=== PATIENT | female | born 1965 | race Caucasian/White ===

== ENCOUNTER 2016-08-31 19:26 | Emergency (ER) | payer BC, MEDICARE ==
[~2016-08-31] VITALS: Ht 160 cm; Wt 91.6 kg
[~2016-08-31 19:26] MED LIST: AMLODIPINE5 MG PO; AMOXICILLIN500 MG PO; CIPROFLOXACN500 MG PO; DEPAKENE250 MG PO; FIORICET PO; FISH OIL1000 MG PO; FLEXERIL PO; LAMICTAL200 MG PO; MACROBID100 MG PO; MULTI VIT PO; NAPROSYN500 MG PO; PERCOCET 5/321 COMBO PO; PHENERGAN25 M1 RE; PHENERGAN25 MG RE; PHENERGAN25 MG/TAB PO; PYRIDIUM200 MG PO; RESTORIL15 M1 PO; TAMAZAPAM PO; ULTRAM50 M1 PO; XANAX1 MG PO; ZOFRAN ODT4 MG PO; ZOFRAN4 MG/TAB PO
[2016-08-31] MEDS ORDERED: LEXAPRO20 MG PO (19:42)
[2016-08-31 20:12] LABS: URINE BILIRUBIN - DIPSTICK NEGATIVE (NEGATIVE); URINE BLOOD DIPSTICK LARGE (NEGATIVE); URINE CLARITY CLEAR; URINE COLOR YELLOW; URINE GLUCOSE - DIPSTICK NEGATIVE (NEGATIVE); URINE KETONE NEGATIVE (NEGATIVE); URINE LEUK ESTERASE TRACE (NEGATIVE); URINE NITRITE - DIPSTICK NEGATIVE (Negative); URINE PH 5.5 (4.5-8.0); URINE PROTEIN - DIPSTICK NEGATIVE (NEG-TRACE); URINE SPECIFIC GRAVITY 1.025; URINE UROBILINOGEN - DIPSTICK 0.2 E.U./dL (0.2)
[2016-08-31 21:07] LABS: HEMATOCRIT 40.8 % (37.0-47.0); HEMOGLOBIN 13.9 g/dl (12.0-16.0); IMMATURE GRANULOCYTES 0.8 % (0.0-1.0); MEAN CELL VOLUME 83.4 fL CALC (80.0-100.0); MEAN CORPUSCULAR HGB 28.4 pG CALC (26.0-32.0); MEAN CORPUSCULAR HGB CONC 34.1 g/L CALC (32.0-36.0); NEUT# 2.48 thou/uL (2.00-7.15); RED BLOOD COUNT 4.89 mill/uL (4.20-5.60); RED CELL DISTRI WIDTH 12.6 % (11.5-15.5)
[2016-08-31 21:13] LABS: ALBUMIN 4.5 g/dL (3.2-5.0); ALKALINE PHOSPHATASE 103 u/l (38-126); AMYLASE 65 u/l (30-110); ANION GAP 18 (6-22 (CALC)); BILIRUBIN, TOTAL 0.5 mg/dL (0.0-1.4); BUN 17 mg/dL (7-17); BUN/CREATININE RATIO 27 (12-20 (CALC)); CALCIUM 10.4 mg/dL (8.4-10.2); CARBON DIOXIDE 23 mmol/l (22-30); CHLORIDE 108 mmol/l (95-108); CREATININE 0.6 mg/dL (0.5-1.0); GFR > 60 ML/MIN (>=60 (CALC)); GFR FOR AFR.AMER. > 60 ML/MIN (>=60 (CALC)); GLUCOSE 89 mg/dL (65-105); LIPASE 70 u/l (23-300); POTASSIUM 4.6 mmol/l (3.5-5.1); SGOT/AST 23 u/l (14-36); SGPT/ALT 29 u/l (9-52); SODIUM 143 mmol/l (137-146); TOTAL PROTEIN 7.5 g/dL (6.3-8.2)
[2016-08-31 21:14] LABS: URINE CALCIUM OXALATE CRYSTALS MODERATE lpf; URINE RBC 50-100 RBC/hpf (0-5); URINE SQUAMOUS EPITHELIAL CELL FEW EPI/hpf (0-FEW)
[2016-08-31 21:25] LABS: MYOGLOBIN 14 ng/mL (0 - 62)
[2016-08-31] MEDS ORDERED: CIPROFLOXACN500 MG PO (21:37)
[2016-08-31] MEDS ORDERED: AMLODIPINE5 MG PO (21:37)
[2016-08-31] MEDS ORDERED: PYRIDIUM200 MG PO (21:52)
[2016-08-31 22:15] VITALS: BP 149/71
== END 2016-08-31 22:15 | disposition home or self-care (01) | DRG 690 ==
LOC: ED 19:26
PROVIDERS: Emergency Medicine
DX: N39.0 Urinary tract infection, site not specified (principal); R10.2 Pelvic and perineal pain; R11.2 Nausea with vomiting, unspecified; R30.0 Dysuria

== ENCOUNTER 2016-09-30 18:17 | Emergency (ER) | payer BC, MEDICARE ==
[~2016-09-30] VITALS: Ht 160 cm; Wt 79.5 kg
[~2016-09-30 18:17] MED LIST changes: +LEXAPRO20 MG PO
[2016-09-30 19:37] LABS: HEMOGLOBIN 13.4 g/dl (12.0-16.0); IMMATURE GRANULOCYTES 0.8 % (0.0-1.0); MEAN CELL VOLUME 82.8 fL CALC (80.0-100.0); MEAN CORPUSCULAR HGB 28.5 pG CALC (26.0-32.0); MEAN CORPUSCULAR HGB CONC 34.4 g/L CALC (32.0-36.0); NEUT# 3.21 thou/uL (2.00-7.15); RED BLOOD COUNT 4.71 mill/uL (4.20-5.60); RED CELL DISTRI WIDTH 12.5 % (11.5-15.5)
[2016-09-30 19:40] LABS: URINE BILIRUBIN - DIPSTICK NEGATIVE (NEGATIVE); URINE BLOOD DIPSTICK NEGATIVE (NEGATIVE); URINE CLARITY CLEAR; URINE COLOR YELLOW; URINE GLUCOSE - DIPSTICK NEGATIVE (NEGATIVE); URINE KETONE NEGATIVE (NEGATIVE); URINE LEUK ESTERASE NEGATIVE (NEGATIVE); URINE NITRITE - DIPSTICK NEGATIVE (Negative); URINE PROTEIN - DIPSTICK NEGATIVE (NEG-TRACE); URINE UROBILINOGEN - DIPSTICK 0.2 E.U./dL (0.2)
[2016-09-30 19:46] LABS: BARBITURATES NEGATIVE (NEGATIVE); COCAINE NEGATIVE (NEGATIVE); METHADONE NEGATIVE (NEGATIVE); OXCYCODONE NEGATIVE (NEGATIVE); TETRAHYDROCANNABIONOL NEGATIVE (NEGATIVE); TRICYLIC ANTIDEPRESSANTS NEGATIVE (NEGATIVE)
[2016-09-30 19:59] LABS: ALBUMIN 4.5 g/dL (3.2-5.0); ALKALINE PHOSPHATASE 88 u/l (38-126); AMYLASE 48 u/l (30-110); ANION GAP 16 (6-22 (CALC)); BILIRUBIN, TOTAL 0.6 mg/dL (0.0-1.4); BUN 10 mg/dL (7-17); BUN/CREATININE RATIO 20 (12-20 (CALC)); CALCIUM 10.1 mg/dL (8.4-10.2); CARBON DIOXIDE 26 mmol/l (22-30); CHLORIDE 107 mmol/l (95-108); CREATININE 0.5 mg/dL (0.5-1.0); GFR > 60 ML/MIN (>=60 (CALC)); GFR FOR AFR.AMER. > 60 ML/MIN (>=60 (CALC)); GLUCOSE 88 mg/dL (65-105); LIPASE 40 u/l (23-300); POTASSIUM 4.2 mmol/l (3.5-5.1); SGOT/AST 26 u/l (14-36); SGPT/ALT 41 u/l (9-52); SODIUM 144 mmol/l (137-146); TOTAL PROTEIN 7.3 g/dL (6.3-8.2)
[2016-09-30] MEDS ORDERED: PHENERGAN25 MG RE (21:01)
[2016-09-30 21:07] VITALS: BP 166/80
== END 2016-09-30 21:22 | disposition home or self-care (01) | DRG 392 ==
LOC: ED 18:17
PROVIDERS: Emergency Medicine
DX: R10.32 Left lower quadrant pain (principal); I10 Essential (primary) hypertension; R11.2 Nausea with vomiting, unspecified

== ENCOUNTER 2016-10-18 14:08 | Emergency (ER) | payer BC, MEDICARE ==
[~2016-10-18] VITALS: Ht 160 cm; Wt 80.0 kg
[2016-10-18 15:27] LABS: HEMATOCRIT 37.2 % (37.0-47.0); HEMOGLOBIN 12.5 g/dl (12.0-16.0); IMMATURE GRANULOCYTES 0.4 % (0.0-1.0); MEAN CELL VOLUME 84.4 fL CALC (80.0-100.0); MEAN CORPUSCULAR HGB 28.3 pG CALC (26.0-32.0); MEAN CORPUSCULAR HGB CONC 33.6 g/L CALC (32.0-36.0); NEUT# 3.49 thou/uL (2.00-7.15); RED BLOOD COUNT 4.41 mill/uL (4.20-5.60); RED CELL DISTRI WIDTH 12.8 % (11.5-15.5)
[2016-10-18 15:34] LABS: ALKALINE PHOSPHATASE 90 u/l (38-126); AMYLASE 36 u/l (30-110); ANION GAP 16 (6-22 (CALC)); BILIRUBIN, TOTAL 0.4 mg/dL (0.0-1.4); BUN 13 mg/dL (7-17); BUN/CREATININE RATIO 19 (12-20 (CALC)); CALCIUM 9.3 mg/dL (8.4-10.2); CARBON DIOXIDE 20 mmol/l (22-30); CHLORIDE 113 mmol/l (95-108); CREATININE 0.7 mg/dL (0.5-1.0); GFR > 60 ML/MIN (>=60 (CALC)); GFR FOR AFR.AMER. > 60 ML/MIN (>=60 (CALC)); GLUCOSE 85 mg/dL (65-105); LIPASE 33 u/l (23-300); SGOT/AST 16 u/l (14-36); SGPT/ALT 34 u/l (9-52); SODIUM 145 mmol/l (137-146); TOTAL PROTEIN 6.3 g/dL (6.3-8.2)
[2016-10-18 15:56] VITALS: BP 137/65
== END 2016-10-18 16:16 | disposition home or self-care (01) | DRG 103 ==
LOC: ED 14:08
PROVIDERS: Emergency Medicine
DX: G43.909 Migraine, unspecified, not intractable, without status migrainosus (principal); S06.9X0S Unspecified intracranial injury without loss of consciousness, sequela; I10 Essential (primary) hypertension; E78.5 Hyperlipidemia, unspecified; F41.9 Anxiety disorder, unspecified; G40.909 Epilepsy, unspecified, not intractable, without status epilepticus

== ENCOUNTER 2016-11-14 00:10 | Emergency (ER) | payer BC, MEDICARE ==
[~2016-11-14] VITALS: Ht 160 cm; Wt 80.0 kg
[2016-11-14] MEDS ORDERED: AMLODIPINE5 MG PO (00:14)
[2016-11-14] MEDS ORDERED: FISH OIL1000 MG PO (00:16)
[2016-11-14 01:50] VITALS: BP 146/65
[2016-11-14] MEDS ORDERED: HYDROCODONE/ACE1 T12 PO (02:05)
== END 2016-11-14 02:24 | disposition home or self-care (01) | DRG 103 ==
LOC: ED 00:10
DX: G43.909 Migraine, unspecified, not intractable, without status migrainosus (principal); R11.2 Nausea with vomiting, unspecified

== ENCOUNTER 2016-11-14 22:42 | Emergency (ER) | payer BC, MEDICARE ==
[~2016-11-14] VITALS: Ht 160 cm; Wt 80.0 kg
[~2016-11-14 22:42] MED LIST changes: +HYDROCODONE/ACE1 T12 PO
[2016-11-15 00:04] LABS: HEMATOCRIT 37.1 % (37.0-47.0); HEMOGLOBIN 12.7 g/dl (12.0-16.0); IMMATURE GRANULOCYTES 0.4 % (0.0-1.0); MEAN CELL VOLUME 84.1 fL CALC (80.0-100.0); MEAN CORPUSCULAR HGB 28.8 pG CALC (26.0-32.0); MEAN CORPUSCULAR HGB CONC 34.2 g/L CALC (32.0-36.0); NEUT# 2.04 thou/uL (2.00-7.15); RED BLOOD COUNT 4.41 mill/uL (4.20-5.60); RED CELL DISTRI WIDTH 12.3 % (11.5-15.5)
[2016-11-15 00:28] LABS: AMYLASE 44 u/l (30-110); LIPASE 85 u/l (23-300)
[2016-11-15 00:30] LABS: ALBUMIN 4.2 g/dL (3.2-5.0); ALKALINE PHOSPHATASE 86 u/l (38-126); ANION GAP 14 (6-22 (CALC)); BILIRUBIN, TOTAL 0.4 mg/dL (0.0-1.4); BUN 17 mg/dL (7-17); BUN/CREATININE RATIO 28 (12-20 (CALC)); CARBON DIOXIDE 24 mmol/l (22-30); CHLORIDE 107 mmol/l (95-108); CREATININE 0.6 mg/dL (0.5-1.0); GFR > 60 ML/MIN (>=60 (CALC)); GFR FOR AFR.AMER. > 60 ML/MIN (>=60 (CALC)); GLUCOSE 109 mg/dL (65-105); POTASSIUM 4.4 mmol/l (3.5-5.1); SGOT/AST 37 u/l (14-36); SGPT/ALT 37 u/l (9-52); SODIUM 141 mmol/l (137-146); TOTAL PROTEIN 6.8 g/dL (6.3-8.2)
[2016-11-15 01:28] LABS: URINE BILIRUBIN - DIPSTICK NEGATIVE (NEGATIVE); URINE BLOOD DIPSTICK TRACE-INTACT (NEGATIVE); URINE CLARITY CLEAR; URINE COLOR YELLOW; URINE GLUCOSE - DIPSTICK NEGATIVE (NEGATIVE); URINE KETONE NEGATIVE (NEGATIVE); URINE LEUK ESTERASE NEGATIVE (NEGATIVE); URINE NITRITE - DIPSTICK NEGATIVE (Negative); URINE PROTEIN - DIPSTICK NEGATIVE (NEG-TRACE); URINE UROBILINOGEN - DIPSTICK 0.2 E.U./dL (0.2)
[2016-11-15 01:32] LABS: COCAINE NEGATIVE (NEGATIVE); METHADONE NEGATIVE (NEGATIVE); TETRAHYDROCANNABIONOL NEGATIVE (NEGATIVE)
[2016-11-15 01:33] LABS: BARBITURATES NEGATIVE (NEGATIVE); OXCYCODONE NEGATIVE (NEGATIVE); TRICYLIC ANTIDEPRESSANTS NEGATIVE (NEGATIVE)
[2016-11-15 01:37] VITALS: BP 175/71
== END 2016-11-15 01:45 | disposition home or self-care (01) | DRG 103 ==
LOC: ED 22:42
PROVIDERS: Emergency Medicine
DX: G43.909 Migraine, unspecified, not intractable, without status migrainosus (principal); R11.2 Nausea with vomiting, unspecified

== ENCOUNTER 2016-12-14 12:44 | Emergency (ER) | payer BC, MEDICARE ==
[~2016-12-14] VITALS: Ht 160 cm; Wt 79.0 kg
[2016-12-14 14:08] VITALS: BP 141/80
== END 2016-12-14 14:35 | disposition home or self-care (01) | DRG 103 ==
LOC: ED 12:44
DX: G43.909 Migraine, unspecified, not intractable, without status migrainosus (principal); R11.2 Nausea with vomiting, unspecified

== ENCOUNTER 2017-01-14 19:26 | Emergency (ER) | payer BC, MEDICARE ==
[~2017-01-14] VITALS: Ht 160 cm; Wt 81.0 kg
[2017-01-14 20:55] LABS: HEMATOCRIT 38.2 % (37.0-47.0); HEMOGLOBIN 13.2 g/dl (12.0-16.0); IMMATURE GRANULOCYTES 1.2 % (0.0-1.0); MEAN CELL VOLUME 82.7 fL CALC (80.0-100.0); MEAN CORPUSCULAR HGB 28.6 pG CALC (26.0-32.0); MEAN CORPUSCULAR HGB CONC 34.6 g/L CALC (32.0-36.0); NEUT# 6.25 thou/uL (2.00-7.15); RED BLOOD COUNT 4.62 mill/uL (4.20-5.60); RED CELL DISTRI WIDTH 12.5 % (11.5-15.5)
[2017-01-14 21:13] LABS: ALBUMIN 4.5 g/dL (3.2-5.0); ALKALINE PHOSPHATASE 106 u/l (38-126); ANION GAP 16 (6-22 (CALC)); BILIRUBIN, TOTAL 0.6 mg/dL (0.0-1.4); BUN 13 mg/dL (7-17); BUN/CREATININE RATIO 23 (12-20 (CALC)); CARBON DIOXIDE 23 mmol/l (22-30); CHLORIDE 109 mmol/l (95-108); CREATININE 0.6 mg/dL (0.5-1.0); GFR > 60 ML/MIN (>=60 (CALC)); GFR FOR AFR.AMER. > 60 ML/MIN (>=60 (CALC)); GLUCOSE 118 mg/dL (65-105); SGOT/AST 23 u/l (14-36); SGPT/ALT 45 u/l (9-52); SODIUM 143 mmol/l (137-146); TOTAL PROTEIN 7.3 g/dL (6.3-8.2)
[2017-01-14 23:45] VITALS: BP 147/84
== END 2017-01-14 23:45 | DRG 552 ==
LOC: ED 19:26
PROVIDERS: Emergency Medicine
DX: M54.17 Radiculopathy, lumbosacral region (principal); I10 Essential (primary) hypertension; E78.5 Hyperlipidemia, unspecified; F41.9 Anxiety disorder, unspecified

== ENCOUNTER 2017-04-04 17:58 | Emergency (ER) | payer BC, MEDICARE ==
[~2017-04-04] VITALS: Ht 160 cm; Wt 77.0 kg
[2017-04-04 20:18] VITALS: BP 136/64
[2017-04-05] MEDS ORDERED: FIORICET PO (13:17)
[2017-04-05] MEDS ORDERED: PHENERGAN25 MG/TAB PO (13:17)
[2017-04-05] MEDS ORDERED: PHENERGAN25 MG RE (13:17)
== END 2017-04-04 20:25 | disposition home or self-care (01) | DRG 103 ==
LOC: ED 17:58
DX: G43.909 Migraine, unspecified, not intractable, without status migrainosus (principal); E78.5 Hyperlipidemia, unspecified; I10 Essential (primary) hypertension; F41.9 Anxiety disorder, unspecified

== ENCOUNTER 2017-04-05 12:45 | Emergency (ER) | payer BC, MEDICARE ==
[~2017-04-05] VITALS: Ht 160 cm; Wt 90.0 kg
[2017-04-05] MEDS ORDERED: PHENERGAN25 MG/TAB PO (13:17)
[2017-04-05] MEDS ORDERED: PHENERGAN25 MG RE (13:17)
[2017-04-05] MEDS ORDERED: FIORICET PO (13:17)
[2017-04-05 13:47] VITALS: BP 170/78
== END 2017-04-05 13:58 | disposition home or self-care (01) | DRG 103 ==
LOC: ED 12:45
DX: G43.909 Migraine, unspecified, not intractable, without status migrainosus (principal); R11.2 Nausea with vomiting, unspecified

== ENCOUNTER 2017-04-06 10:22 | Emergency (ER) | payer OTHER, BC, MEDICARE ==
[~2017-04-06] VITALS: Ht 160 cm; Wt 100.0 kg
[2017-04-06 11:16] LABS: HEMATOCRIT 37.6 % (37.0-47.0); HEMOGLOBIN 13.2 g/dl (12.0-16.0); IMMATURE GRANULOCYTES 0.7 % (0.0-1.0); MEAN CELL VOLUME 80.9 fL CALC (80.0-100.0); MEAN CORPUSCULAR HGB 28.4 pG CALC (26.0-32.0); MEAN CORPUSCULAR HGB CONC 35.1 g/L CALC (32.0-36.0); NEUT# 3.29 thou/uL (2.00-7.15); RED BLOOD COUNT 4.65 mill/uL (4.20-5.60); RED CELL DISTRI WIDTH 12.5 % (11.5-15.5)
[2017-04-06 11:34] LABS: ALBUMIN 4.3 g/dL (3.2-5.0); ALKALINE PHOSPHATASE 100 u/l (38-126); ANION GAP 15 (6-22 (CALC)); BILIRUBIN, TOTAL 0.5 mg/dL (0.0-1.4); BUN 20 mg/dL (7-17); CALCIUM 10.3 mg/dL (8.4-10.2); CARBON DIOXIDE 22 mmol/l (22-30); CHLORIDE 111 mmol/l (95-108); ETHYL ALCOHOL 0 mg/dl (0-30); GLUCOSE 117 mg/dL (65-105); POTASSIUM 4.4 mmol/l (3.5-5.1); SGOT/AST 18 u/l (14-36); SGPT/ALT 33 u/l (9-52); SODIUM 144 mmol/l (137-146)
[2017-04-06 11:36] LABS: TOTAL PROTEIN 6.8 g/dL (6.3-8.2)
[2017-04-06 11:39] LABS: BUN/CREATININE RATIO 33 (12-20 (CALC)); CREATININE 0.6 mg/dL (0.5-1.0); GFR > 60 ML/MIN (>=60 (CALC)); GFR FOR AFR.AMER. > 60 ML/MIN (>=60 (CALC))
[2017-04-06 12:36] VITALS: BP 97/63
== END 2017-04-06 12:36 | DRG 914 ==
LOC: ED 10:22
PROVIDERS: Emergency Medicine
DX: S39.82XA Other specified injuries of lower back, initial encounter (principal); M54.2 Cervicalgia; V43.52XA Car driver injured in collision with other type car in traffic accident, initial encounter; Y92.414 Local residential or business street as the place of occurrence of the external cause; R20.2 Paresthesia of skin; R20.0 Anesthesia of skin; Z87.311 Personal history of (healed) other pathological fracture; M54.5 Low back pain
CPT/HCPCS: J2060

== ENCOUNTER 2017-05-30 18:54 | Emergency (ER) | payer BC, MEDICARE ==
[~2017-05-30] VITALS: Ht 160 cm; Wt 76.4 kg
[2017-05-30 21:08] LABS: HEMATOCRIT 43.4 % (37.0-47.0); HEMOGLOBIN 14.2 g/dl (12.0-16.0); IMMATURE GRANULOCYTES 0.5 % (0.0-1.0); MEAN CELL VOLUME 85.9 fL CALC (80.0-100.0); MEAN CORPUSCULAR HGB 28.1 pG CALC (26.0-32.0); MEAN CORPUSCULAR HGB CONC 32.7 g/L CALC (32.0-36.0); NEUT# 4.76 thou/uL (2.00-7.15); RED BLOOD COUNT 5.05 mill/uL (4.20-5.60); RED CELL DISTRI WIDTH 12.7 % (11.5-15.5)
[2017-05-30 21:25] LABS: ALBUMIN 4.2 g/dL (3.2-5.0); ALKALINE PHOSPHATASE 114 u/l (38-126); ANION GAP 16 (6-22 (CALC)); BILIRUBIN, TOTAL 0.4 mg/dL (0.0-1.4); BUN 12 mg/dL (7-17); BUN/CREATININE RATIO 19 (12-20 (CALC)); CALCIUM 10.6 mg/dL (8.4-10.2); CARBON DIOXIDE 24 mmol/l (22-30); CHLORIDE 109 mmol/l (95-108); CREATININE 0.6 mg/dL (0.5-1.0); GFR > 60 ML/MIN (>=60 (CALC)); GFR FOR AFR.AMER. > 60 ML/MIN (>=60 (CALC)); GLUCOSE 123 mg/dL (65-105); POTASSIUM 4.5 mmol/l (3.5-5.1); SGOT/AST 24 u/l (14-36); SGPT/ALT 20 u/l (9-52); SODIUM 145 mmol/l (137-146); TOTAL PROTEIN 6.8 g/dL (6.3-8.2)
[2017-05-30 23:28] VITALS: BP 136/72
== END 2017-05-30 23:00 | disposition home or self-care (01) | DRG 103 ==
LOC: ED 18:54
PROVIDERS: Emergency Medicine
DX: R51 Headache (principal); Z91.19 Patient's noncompliance with other medical treatment and regimen; I10 Essential (primary) hypertension; R50.9 Fever, unspecified; R11.2 Nausea with vomiting, unspecified

== ENCOUNTER 2017-06-01 18:23 | Emergency (ER) | payer BC, MEDICARE ==
[~2017-06-01] VITALS: Ht 160 cm; Wt 77.0 kg
[2017-06-01 21:27] VITALS: BP 138/79
== END 2017-06-01 21:27 | disposition left against medical advice (07) | DRG 103 ==
LOC: ED 18:23
DX: R51 Headache (principal); R11.2 Nausea with vomiting, unspecified; Z91.19 Patient's noncompliance with other medical treatment and regimen

== ENCOUNTER 2017-06-26 18:47 | Emergency (ER) | payer BC, MEDICARE ==
[~2017-06-26] VITALS: Ht 160 cm; Wt 77.0 kg
[2017-06-26 21:30] VITALS: BP 132/73
== END 2017-06-26 21:28 | disposition home or self-care (01) | DRG 552 ==
LOC: ED 18:47
DX: M54.5 Low back pain (principal); G89.29 Other chronic pain; W18.39XA Other fall on same level, initial encounter; Y93.K1 Activity, walking an animal; Y92.009 Unspecified place in unspecified non-institutional (private) residence as the place of occurrence of the external cause

== ENCOUNTER 2017-07-28 14:24 | Emergency (ER) | payer BC, MEDICARE ==
[~2017-07-28] VITALS: Ht 160 cm; Wt 77.2 kg
[2017-07-28 15:32] LABS: URINE BILIRUBIN - DIPSTICK NEGATIVE (NEGATIVE); URINE BLOOD DIPSTICK NEGATIVE (NEGATIVE); URINE COLOR YELLOW; URINE GLUCOSE - DIPSTICK NEGATIVE (NEGATIVE); URINE KETONE NEGATIVE (NEGATIVE); URINE LEUK ESTERASE NEGATIVE (NEGATIVE); URINE NITRITE - DIPSTICK NEGATIVE (Negative); URINE PROTEIN - DIPSTICK NEGATIVE (NEG-TRACE); URINE SPECIFIC GRAVITY 1.015; URINE UROBILINOGEN - DIPSTICK 0.2 E.U./dL (0.2)
[2017-07-28 15:33] LABS: IMMATURE GRANULOCYTES 0.6 % (0.0-1.0); MEAN CORPUSCULAR HGB 28.1 pG CALC (26.0-32.0); MEAN CORPUSCULAR HGB CONC 34.8 g/L CALC (32.0-36.0); NEUT# 3.84 thou/uL (2.00-7.15); RED BLOOD COUNT 4.62 mill/uL (4.20-5.60); RED CELL DISTRI WIDTH 12.8 % (11.5-15.5)
[2017-07-28 15:33] LABS: URINE CLARITY HAZY
[2017-07-28 15:35] LABS: HEMATOCRIT 37.4 % (37.0-47.0)
[2017-07-28 15:51] LABS: ALBUMIN 4.2 g/dL (3.2-5.0); ALKALINE PHOSPHATASE 123 u/l (38-126); ANION GAP 18 (6-22 (CALC)); BILIRUBIN, TOTAL 0.5 mg/dL (0.0-1.4); BUN 15 mg/dL (7-17); BUN/CREATININE RATIO 23 (12-20 (CALC)); CARBON DIOXIDE 24 mmol/l (22-30); CHLORIDE 107 mmol/l (95-108); CREATININE 0.6 mg/dL (0.5-1.0); GFR > 60 ML/MIN (>=60 (CALC)); GFR FOR AFR.AMER. > 60 ML/MIN (>=60 (CALC)); POTASSIUM 4.8 mmol/l (3.5-5.1); SGOT/AST 22 u/l (14-36); SGPT/ALT 26 u/l (9-52); SODIUM 143 mmol/l (137-146); TOTAL PROTEIN 7.3 g/dL (6.3-8.2)
[2017-07-28 18:39] VITALS: BP 154/84
== END 2017-07-28 18:46 | disposition home or self-care (01) | DRG 392 ==
LOC: ED 14:24
PROVIDERS: Family Medicine
DX: R10.9 Unspecified abdominal pain (principal); R11.0 Nausea; R50.9 Fever, unspecified; S39.012A Strain of muscle, fascia and tendon of lower back, initial encounter; Z87.442 Personal history of urinary calculi

== ENCOUNTER 2017-09-19 18:23 | Emergency (ER) | payer BC, MEDICARE ==
[~2017-09-19] VITALS: Ht 160 cm; Wt 84.0 kg
[2017-09-19] MEDS ORDERED: METOPROL TAR25 MG PO (18:33)
[2017-09-19 19:38] VITALS: BP 148/79
== END 2017-09-19 19:33 | disposition home or self-care (01) | DRG 103 ==
LOC: ED 18:23
DX: G43.909 Migraine, unspecified, not intractable, without status migrainosus (principal); F41.9 Anxiety disorder, unspecified; I10 Essential (primary) hypertension; Z87.442 Personal history of urinary calculi

== ENCOUNTER 2017-10-11 12:55 | Emergency (ER) | payer BC, MEDICARE ==
[~2017-10-11] VITALS: Ht 160 cm; Wt 85.5 kg
[~2017-10-11 12:55] MED LIST changes: +METOPROL TAR25 MG PO
[2017-10-11] MEDS ORDERED: AMLODIPINE5 MG PO (13:11)
[2017-10-11] MEDS ORDERED: LEXAPRO10 MG PO (13:12)
[2017-10-11] MEDS ORDERED: ATIVAN0.5 MG PO (13:57)
[2017-10-11] MEDS ORDERED: PHENERGAN25 MG RE (13:57)
[2017-10-11] MEDS ORDERED: FIORICET PO (14:13)
[2017-10-11 14:16] VITALS: BP 179/82
== END 2017-10-11 14:16 | disposition home or self-care (01) | DRG 103 ==
LOC: ED 12:55
DX: R51 Headache (principal); F41.9 Anxiety disorder, unspecified; I10 Essential (primary) hypertension
CPT/HCPCS: J2060

== ENCOUNTER 2017-10-11 19:56 | Emergency (ER) | payer BC, MEDICARE ==
[~2017-10-11] VITALS: Ht 160 cm; Wt 86.0 kg
[~2017-10-11 19:56] MED LIST changes: +ATIVAN0.5 MG PO; +LEXAPRO10 MG PO
[2017-10-11 22:29] VITALS: BP 150/84
== END 2017-10-11 22:29 | disposition home or self-care (01) | DRG 103 ==
LOC: ED 19:56
DX: G43.909 Migraine, unspecified, not intractable, without status migrainosus (principal); F41.9 Anxiety disorder, unspecified; I10 Essential (primary) hypertension; Z87.442 Personal history of urinary calculi

== ENCOUNTER 2017-11-15 11:05 | Emergency (ER) | payer BC, MEDICARE ==
[~2017-11-15] VITALS: Ht 160 cm; Wt 85.0 kg
[2017-11-15] MEDS ORDERED: MEDDOSEPAK PO (13:26)
[2017-11-15] MEDS ORDERED: BENADRYL 50MG C50 MG PO (13:26)
[2017-11-15] MEDS ORDERED: PEPCID20 MG PO (13:26)
[2017-11-15 13:45] VITALS: BP 143/67
== END 2017-11-15 13:45 | disposition home or self-care (01) | DRG 916 ==
LOC: ED 11:05
DX: T78.40XA Allergy, unspecified, initial encounter (principal); F41.9 Anxiety disorder, unspecified; I10 Essential (primary) hypertension; Z87.442 Personal history of urinary calculi

== ENCOUNTER 2018-02-02 19:03 | Emergency (ER) | payer BC, MEDICARE ==
[~2018-02-02] VITALS: Ht 160 cm; Wt 91.0 kg
[~2018-02-02 19:03] MED LIST changes: +ATIVAN1 MG PO; +BENADRYL 50MG C50 MG PO; +INVANZ1 GM IJ; +LORTAB 1010 MG PO; +MEDDOSEPAK PO; +PEPCID20 MG PO
[2018-02-02] MEDS ORDERED: PHENERGAN25 M1 PR (20:35)
[2018-02-02] MEDS ORDERED: FIORICET PO (20:35)
[2018-02-02 20:52] VITALS: BP 138/85
== END 2018-02-02 20:52 | disposition home or self-care (01) | DRG 103 ==
LOC: ED 19:03
DX: R51 Headache (principal)

== ENCOUNTER 2018-07-28 13:12 | Emergency (ER) | payer MEDICARE ==
[~2018-07-28] VITALS: Ht 160 cm; Wt 85.9 kg
[~2018-07-28 13:12] MED LIST changes: +PHENERGAN25 M1 PR
[2018-07-28] MEDS ORDERED: CLINDAMYCIN300 M1 PO ×2 (14:26→14:47)
[2018-07-28] MEDS ORDERED: TRAMADOL HYDROC50 MG PO (14:26)
[2018-07-28 14:35] VITALS: BP 145/71
== END 2018-07-28 14:49 | disposition home or self-care (01) | DRG 585 ==
LOC: ED 13:12
PROC: 0H9U0ZZ Drainage of Left Breast, Open Approach (ICD-10-PCS; principal; 2018-07-28)
DX: N61.1 Abscess of the breast and nipple (principal); I10 Essential (primary) hypertension; B95.7 Other staphylococcus as the cause of diseases classified elsewhere

== ENCOUNTER 2018-07-31 10:24 | Emergency (ER) | payer MEDICARE ==
[~2018-07-31] VITALS: Ht 160 cm; Wt 100.0 kg
[~2018-07-31 10:24] MED LIST changes: +CLINDAMYCIN300 M1 PO; +TRAMADOL HYDROC50 MG PO
[2018-07-31 10:55] VITALS: BP 138/77
[2018-07-31] MEDS ORDERED: LOPRESSOR 550 MG/TAB PO (10:56)
[2018-07-31] MEDS ORDERED: RESTORIL15 MG PO (10:57)
[2018-07-31] MEDS ORDERED: LORAZEPAM0.5 MG PO (10:58)
== END 2018-07-31 10:55 | disposition home or self-care (01) ==
LOC: ED 10:24
DX: Z48.01 Encounter for change or removal of surgical wound dressing (principal)

== ENCOUNTER 2018-09-06 17:04 | Emergency (ER) | payer MEDICARE ==
[~2018-09-06] VITALS: Ht 160 cm; Wt 110.0 kg
[~2018-09-06 17:04] MED LIST changes: +LOPRESSOR 550 MG/TAB PO; +LORAZEPAM0.5 MG PO; +RESTORIL15 MG PO
[2018-09-06] MEDS ORDERED: AMLODIPINE BESYL5 MG PO (18:07)
[2018-09-06] MEDS ORDERED: PHENERGAN SUP12.5 MG RE (19:21)
[2018-09-06] MEDS ORDERED: FIORICET PO (19:21)
[2018-09-06 19:25] VITALS: BP 155/74
== END 2018-09-06 19:25 | disposition home or self-care (01) ==
LOC: ED 17:04
DX: R51 Headache (principal); R11.2 Nausea with vomiting, unspecified; H53.149 Visual discomfort, unspecified

== ENCOUNTER 2019-01-07 10:59 | Emergency (ER) | payer MEDICARE ==
[~2019-01-07] VITALS: Ht 160 cm; Wt 79.2 kg
[~2019-01-07 10:59] MED LIST changes: +AMLODIPINE BESYL5 MG PO; +PHENERGAN SUP12.5 MG RE
[2019-01-07] MEDS ORDERED: PHENERGAN SUP12.5 MG RE (12:17)
[2019-01-07] MEDS ORDERED: TRAMADOL HYDROC50 MG PO (12:17)
[2019-01-07 12:36] VITALS: BP 149/94
== END 2019-01-07 12:36 | disposition home or self-care (01) ==
LOC: ED 10:59
DX: S93.402A Sprain of unspecified ligament of left ankle, initial encounter (principal); I10 Essential (primary) hypertension; X50.0XXA Overexertion from strenuous movement or load, initial encounter; Y93.89 Activity, other specified; Y92.009 Unspecified place in unspecified non-institutional (private) residence as the place of occurrence of the external cause

== ENCOUNTER 2019-01-22 16:46 | Emergency (ER) | payer MEDICARE ==
[~2019-01-22] VITALS: Ht 160 cm; Wt 86.4 kg
[2019-01-22 18:59] VITALS: BP 178/77
== END 2019-01-22 18:59 | disposition home or self-care (01) ==
LOC: ED 16:46
DX: R51 Headache (principal); I10 Essential (primary) hypertension

== ENCOUNTER 2019-04-28 18:23 | Emergency (ER) | payer MEDICARE ==
[2019-04-28 19:14] VITALS: BP 143/90
== END 2019-04-28 19:58 | disposition left against medical advice (07) ==
LOC: ED 18:23 → LWOBS 19:58
DX: Z53.21 Procedure and treatment not carried out due to patient leaving prior to being seen by health care provider (principal)

== ENCOUNTER 2019-07-28 | Emergency (ER) | payer MEDICARE ==
[2019-07-28 19:57] LABS: HEMATOCRIT 39.4 % (37.0-47.0); HEMOGLOBIN 13.4 g/dl (12.0-16.0); IMMATURE GRANULOCYTES 0.6 % (0.0-5.0); MEAN CELL VOLUME 81.4 fL CALC (80.0-100.0); MEAN CORPUSCULAR HGB 27.7 pG CALC (26.0-32.0); NEUT# 10.54 thou/uL (2.00-7.15); RED BLOOD COUNT 4.84 mill/uL (4.20-5.60); RED CELL DISTRI WIDTH 12.4 % (11.5-15.5)
[2019-07-28 19:58] LABS: URINE BILIRUBIN - DIPSTICK NEGATIVE (NEGATIVE); URINE BLOOD DIPSTICK LARGE (NEGATIVE); URINE COLOR YELLOW; URINE GLUCOSE - DIPSTICK NEGATIVE (NEGATIVE); URINE KETONE NEGATIVE (NEGATIVE); URINE LEUK ESTERASE MODERATE (NEGATIVE); URINE NITRITE - DIPSTICK NEGATIVE (Negative); URINE PROTEIN - DIPSTICK 100 mg/dL (NEG-TRACE); URINE UROBILINOGEN - DIPSTICK 0.2 E.U./dL (0.2)
[2019-07-28 20:10] LABS: ALBUMIN 4.5 g/dL (3.2-5.0); ALKALINE PHOSPHATASE 118 u/l (38-126); AMYLASE 40 u/l (30-110); BUN 15 mg/dL (7-17); BUN/CREATININE RATIO 22 (12-20 (CALC)); CHLORIDE 102 mmol/l (95-108); CREATININE 0.7 mg/dL (0.5-1.0); GFR > 60 ML/MIN (>=60 (CALC)); GFR FOR AFR.AMER. > 60 ML/MIN (>=60 (CALC)); LIPASE 50 u/l (23-300); POTASSIUM 4.5 mmol/l (3.5-5.1); SODIUM 135 mmol/l (137-146); TOTAL PROTEIN 7.4 g/dL (6.3-8.2)
[2019-07-28 20:14] LABS: URINE SQUAMOUS EPITHELIAL CELL FEW EPI/hpf (0-FEW); URINE WBC TNTC WBC/hpf (0-5)
[2019-07-28 20:48] LABS: ANION GAP 16 (6-22 (CALC)); BILIRUBIN, TOTAL 0.9 mg/dL (0.0-1.4); CARBON DIOXIDE 22 mmol/l (22-30); SGOT/AST 35 u/l (14-36)
[2019-07-28] MEDS ORDERED: TRAMADOL HCL50 MG PO (21:01)
[2019-07-28] MEDS ORDERED: Levaquin PO (21:01)
[2019-07-28] MEDS ORDERED: TAMSULOSIN0.4 MG PO (21:01)
[2019-07-28] MEDS ORDERED: PHENERGAN25 MG/TAB PO (21:01)
== END 2019-07-28 21:30 | disposition home or self-care (01) ==
PROVIDERS: Family Medicine
DX: N20.0 Calculus of kidney (principal); N39.0 Urinary tract infection, site not specified; I10 Essential (primary) hypertension; Z87.442 Personal history of urinary calculi

== ENCOUNTER 2020-06-19 09:12 | Emergency (ER) | payer MEDICARE ==
[~2020-06-19] VITALS: Ht 160 cm; Wt 100.0 kg
[~2020-06-19 09:12] MED LIST changes: +DOXYCYCL HYC100 MG PO; +KLONOPIN1 MG PO; +Levaquin PO; +TAMSULOSIN0.4 MG PO; +TRAMADOL HCL50 MG PO
[2020-06-19 09:43] VITALS: BP 176/76
== END 2020-06-19 11:00 | disposition home or self-care (01) ==
LOC: ED 09:12
PROC: 3E0234Z Introduction of Serum, Toxoid and Vaccine into Muscle, Percutaneous Approach (ICD-10-PCS; principal; 2020-06-19)
DX: Z23 Encounter for immunization (principal); T14.8XXD Other injury of unspecified body region, subsequent encounter; W55.01XD Bitten by cat, subsequent encounter; I10 Essential (primary) hypertension; F41.9 Anxiety disorder, unspecified

== ENCOUNTER 2020-06-23 09:38 | Emergency (ER) | payer MEDICARE ==
[~2020-06-23] VITALS: Ht 160 cm; Wt 91.8 kg
[2020-06-23 11:24] VITALS: BP 136/89
== END 2020-06-23 11:24 | disposition home or self-care (01) ==
LOC: ED 09:38
PROC: 3E0234Z Introduction of Serum, Toxoid and Vaccine into Muscle, Percutaneous Approach (ICD-10-PCS; principal; 2020-06-23)
DX: Z23 Encounter for immunization (principal); S61.452D Open bite of left hand, subsequent encounter; W55.01XD Bitten by cat, subsequent encounter; I10 Essential (primary) hypertension; F41.9 Anxiety disorder, unspecified; Z88.7 Allergy status to serum and vaccine

== ENCOUNTER 2020-06-30 11:25 | Emergency (ER) | payer MEDICARE ==
[~2020-06-30] VITALS: Ht 160 cm; Wt 73.0 kg
[2020-06-30] MEDS ORDERED: ESCITALOPRAM OX20 MG PO (12:03)
[2020-06-30 12:10] VITALS: BP 116/64
[2020-06-30] MEDS ORDERED: MOTRIN800 MG PO (12:15)
[2020-06-30] MEDS ORDERED: TEMAZEPAM30 MG PO (12:15)
[2020-06-30] MEDS ORDERED: GABAPENTIN600 MG PO (12:16)
== END 2020-06-30 12:10 | disposition home or self-care (01) ==
LOC: ED 11:25
PROC: 3E0234Z Introduction of Serum, Toxoid and Vaccine into Muscle, Percutaneous Approach (ICD-10-PCS; principal; 2020-06-30)
DX: Z23 Encounter for immunization (principal); S40.872D Other superficial bite of left upper arm, subsequent encounter; I10 Essential (primary) hypertension; E11.9 Type 2 diabetes mellitus without complications; F41.9 Anxiety disorder, unspecified; W64.XXXD Exposure to other animate mechanical forces, subsequent encounter

== ENCOUNTER 2020-10-29 14:44 | Emergency (ER) | payer MEDICARE ==
[~2020-10-29] VITALS: Ht 160 cm; Wt 100.0 kg
[~2020-10-29 14:44] MED LIST changes: +ESCITALOPRAM OX20 MG PO; +GABAPENTIN600 MG PO; +MOTRIN800 MG PO; +TEMAZEPAM30 MG PO
[2020-10-29] MEDS ORDERED: BACTROBAN TOP (18:08)
[2020-10-29] MEDS ORDERED: TRAMADOL HYDROC50 M1 PO (18:08)
[2020-10-29 18:21] VITALS: BP 170/81
== END 2020-10-29 18:21 | disposition home or self-care (01) ==
LOC: ED 14:44
DX: S80.212A Abrasion, left knee, initial encounter (principal); S80.211A Abrasion, right knee, initial encounter; S50.02XA Contusion of left elbow, initial encounter; M89.49 Other hypertrophic osteoarthropathy, multiple sites; I10 Essential (primary) hypertension; F41.9 Anxiety disorder, unspecified; W01.0XXA Fall on same level from slipping, tripping and stumbling without subsequent striking against object, initial encounter; Y92.009 Unspecified place in unspecified non-institutional (private) residence as the place of occurrence of the external cause

== ENCOUNTER 2021-06-19 11:38 | Emergency (ER) | payer MEDICARE ==
[2021-06-19] VITALS (14 sets, daily range): BP systolic 137–176; BP diastolic 71–102
[~2021-06-19] VITALS: Ht 160 cm; Wt 102.0 kg
[~2021-06-19 11:38] MED LIST changes: +BACTROBAN TOP; -GABAPENTIN600 MG PO; +NEURONTIN800 MG PO; +TRAMADOL HYDROC50 M1 PO
[2021-06-19] MEDS ORDERED: BACLOFEN20 MG PO (12:35)
[2021-06-19 12:51] LABS: HEMATOCRIT 43.3 % (37.0-47.0); HEMOGLOBIN 14.3 g/dl (12.0-16.0); IMMATURE GRANULOCYTES 0.1 % (0.0-5.0); MEAN CORPUSCULAR HGB 28.5 pG CALC (26.0-32.0); NEUT# 13.12 thou/uL (2.00-7.15); RED BLOOD COUNT 5.01 mill/uL (4.20-5.60); RED CELL DISTRI WIDTH 12.9 % (11.5-15.5)
[2021-06-19 13:07] LABS: MEAN CELL VOLUME 86.4 fL CALC (80.0-100.0)
[2021-06-19 13:27] LABS: URINE BILIRUBIN - DIPSTICK NEGATIVE (NEGATIVE); URINE BLOOD DIPSTICK LARGE (NEGATIVE); URINE COLOR YELLOW; URINE GLUCOSE - DIPSTICK NEGATIVE (NEGATIVE); URINE KETONE >=80 mg/dL (NEGATIVE); URINE PROTEIN - DIPSTICK 30 mg/dL (NEG-TRACE); URINE SPECIFIC GRAVITY >=1.030; URINE UROBILINOGEN - DIPSTICK 0.2 E.U./dL (0.2)
[2021-06-19 13:29] LABS: URINE LEUK ESTERASE SMALL (NEGATIVE); URINE NITRITE - DIPSTICK NEGATIVE (Negative)
[2021-06-19 13:36] LABS: URINE BACTERIA MANY hpf; URINE SQUAMOUS EPITHELIAL CELL FEW EPI/hpf (0-FEW); URINE WBC 20-50 WBC/hpf (0-5)
[2021-06-19 13:46] LABS: ALBUMIN 4.7 g/dL (3.2-5.0); ALKALINE PHOSPHATASE 131 u/l (38-126); BILIRUBIN, TOTAL 0.7 mg/dL (0.0-1.4); BUN 36 mg/dL (7-17); BUN/CREATININE RATIO 45 (12-20 (CALC)); CHLORIDE 110 mmol/l (95-108); CREATININE 0.8 mg/dL (0.5-1.0); ETHYL ALCOHOL 0 mg/dl (0-30); GFR > 60 ML/MIN (>=60 (CALC)); GFR FOR AFR.AMER. > 60 ML/MIN (>=60 (CALC)); LIPASE 26 u/l (23-300); POTASSIUM 3.9 mmol/l (3.5-5.1); TOTAL PROTEIN 8.1 g/dL (6.3-8.2)
[2021-06-19 14:03] LABS: ANION GAP 23 (6-22 (CALC)); CARBON DIOXIDE 16 mmol/l (22-30); SODIUM 145 mmol/l (137-146)
[2021-06-19 14:04] LABS: CPK 4412 u/l (30-165); SGOT/AST 100 u/l (14-36)
== END 2021-06-19 17:52 | disposition short-term general hospital (02) ==
LOC: ED 11:38
PROVIDERS: Family Medicine
DX: I21.4 Non-ST elevation (NSTEMI) myocardial infarction (principal); M62.82 Rhabdomyolysis; N39.0 Urinary tract infection, site not specified; F32.A Depression, unspecified; I10 Essential (primary) hypertension; F41.9 Anxiety disorder, unspecified; Z88.1 Allergy status to other antibiotic agents
CPT/HCPCS: J1650; J2060

== ENCOUNTER 2022-01-25 18:21 | Emergency (ER) | payer MEDICARE ==
[~2022-01-25] VITALS: Ht 160 cm; Wt 84.0 kg
[~2022-01-25 18:21] MED LIST changes: +BACLOFEN20 MG PO
[2022-01-25 18:45] VITALS: BP 155/77
[2022-01-25 19:48] LABS: HEMATOCRIT 38.4 % (37.0-47.0); HEMOGLOBIN 12.7 g/dl (12.0-16.0); IMMATURE GRANULOCYTES 0.3 % (0.0-5.0); MEAN CELL VOLUME 85.7 fL CALC (80.0-100.0); MEAN CORPUSCULAR HGB 28.3 pG CALC (26.0-32.0); MEAN CORPUSCULAR HGB CONC 33.1 g/dL CAL (32.0-36.0); NEUT# 3.49 thou/uL (2.00-7.15); RED BLOOD COUNT 4.48 mill/uL (4.20-5.60); RED CELL DISTRI WIDTH 12.7 % (11.5-15.5)
[2022-01-25 20:12] LABS: ALBUMIN 4.2 g/dL (3.2-5.0); ALKALINE PHOSPHATASE 95 u/l (38-126); BUN 19 mg/dL (7-17); BUN/CREATININE RATIO 30 (12-20 (CALC)); CHLORIDE 108 mmol/l (95-108); CREATININE 0.6 mg/dL (0.5-1.0); GFR FOR AFR.AMER. > 60 ML/MIN (>=60 (CALC)); GFR OTHER RACES > 60 ML/MIN (>=60 (CALC)); POTASSIUM 4.1 mmol/l (3.5-5.1); SGOT/AST 25 u/l (14-36); SODIUM 139 mmol/l (137-146); TOTAL PROTEIN 6.8 g/dL (6.3-8.2)
[2022-01-25 20:15] LABS: ANION GAP 14 (6-22 (CALC)); BILIRUBIN, TOTAL 0.2 mg/dL (0.0-1.4); CARBON DIOXIDE 21 mmol/l (22-30)
[2022-01-25 21:03] VITALS: BP 155/77
== END 2022-01-25 20:55 | disposition left against medical advice (07) ==
LOC: ED 18:21
PROVIDERS: Emergency Medicine
DX: G43.909 Migraine, unspecified, not intractable, without status migrainosus (principal); G89.4 Chronic pain syndrome; Z76.5 Malingerer [conscious simulation]; Z88.8 Allergy status to other drugs, medicaments and biological substances; Z91.19 Patient's noncompliance with other medical treatment and regimen

== ENCOUNTER 2022-12-23 20:02 | Emergency (ER) | payer MEDICARE ==
[~2022-12-23] VITALS: Ht 160 cm; Wt 108.0 kg
[2022-12-23 20:27] VITALS: BP 154/79
[2022-12-23 20:31] VITALS: BP 167/54
[2022-12-23 20:46] VITALS: BP 167/75
[2022-12-23 21:01] VITALS: BP 114/86
[2022-12-23] MEDS ORDERED: NAPROXEN500 MG PO (21:34)
[2022-12-23 21:44] VITALS: BP 114/86
[2022-12-26] MEDS ORDERED: TRAMADOL HYDROC50 M1 PO (16:29)
== END 2022-12-23 21:50 | disposition home or self-care (01) ==
LOC: ED 20:02
DX: S43.401A Unspecified sprain of right shoulder joint, initial encounter (principal); I10 Essential (primary) hypertension; E11.9 Type 2 diabetes mellitus without complications; F41.9 Anxiety disorder, unspecified; X58.XXXA Exposure to other specified factors, initial encounter

== ENCOUNTER 2022-12-25 14:16 | Emergency (ER) | payer MEDICARE ==
[~2022-12-25] VITALS: Ht 160 cm; Wt 82.0 kg
[~2022-12-25 14:16] MED LIST changes: +NAPROXEN500 MG PO
[2022-12-25] MEDS ORDERED: TRAMADOL HYDROC50 M1 PO ×2 (15:52→16:27)
[2022-12-25 16:21] VITALS: BP 133/77
[2022-12-26] MEDS ORDERED: TRAMADOL HYDROC50 M1 PO (16:29)
== END 2022-12-25 16:38 | disposition home or self-care (01) ==
LOC: ED 14:16
DX: S43.401A Unspecified sprain of right shoulder joint, initial encounter (principal); I10 Essential (primary) hypertension; F41.9 Anxiety disorder, unspecified; X58.XXXA Exposure to other specified factors, initial encounter

== ENCOUNTER 2023-10-28 17:11 | Emergency (ER) | payer MEDICARE ==
[~2023-10-28] VITALS: Ht 160 cm; Wt 88.9 kg
[2023-10-28] VITALS (13 sets, daily range): BP systolic 104–174; BP diastolic 47–133
[2023-10-28] MEDS ORDERED: DEXAMETHASONE SOD. PHOSPHATE 10 MG/ML VIAL IV ONE (17:20)
[2023-10-28] MEDS ORDERED: SODIUM CHLORIDE 0.9% 1,000 ML IV ONE (17:20)
[2023-10-28] MEDS ORDERED: PROMETHAZINE HCL 25 MG/ML AMP IV ONE (17:20)
[2023-10-28] MEDS ORDERED: ORPHENADRINE CITRATE 30 MG/ML AMP IV ONE (17:20)
[2023-10-28 17:48] LABS: BASO% 0.3 % (0-3); EOS% 4.3 % (0-8); HEMOGLOBIN 12.8 g/dl (12.0-16.0); IMMATURE GRANULOCYTES 0.4 % (0.0-5.0); LYMPH% 26.7 % (15-41); MEAN CELL VOLUME 83.3 fL CALC (80.0-100.0); MEAN CORPUSCULAR HGB 28.1 pG CALC (26.0-32.0); MEAN CORPUSCULAR HGB CONC 33.7 g/dL CAL (32.0-36.0); MONO% 7.2 % (2-13); NEUT# 4.75 thou/uL (2.00-7.15); NEUT% 61.1 % (42-76); RED BLOOD COUNT 4.56 mill/uL (4.20-5.60); RED CELL DISTRI WIDTH 13.2 % (11.5-15.5)
[2023-10-28 18:01] LABS: ALBUMIN 4.2 g/dL (3.2-5.0); CREATININE 0.8 mg/dL (0.5-1.0); POTASSIUM 3.9 mmol/l (3.5-5.1)
[2023-10-28] MEDS ORDERED: DiphenhydrAMINE HCL 50 MG/ML SDV IV ONE (18:05)
[2023-10-28 18:07] LABS: BILIRUBIN, TOTAL 0.3 mg/dL (0.02-1.3)
[2023-10-28 19:05] LABS: URINE BILIRUBIN - DIPSTICK Negative (NEGATIVE); URINE BLOOD DIPSTICK Negative (NEGATIVE); URINE COLOR Yellow; URINE GLUCOSE - DIPSTICK Negative (NEGATIVE); URINE KETONE Negative (NEGATIVE); URINE LEUK ESTERASE Small (NEGATIVE); URINE NITRITE - DIPSTICK Negative (Negative); URINE PH 5.5 (4.5-8.0); URINE PROTEIN - DIPSTICK Negative (NEG-TRACE); URINE UROBILINOGEN - DIPSTICK 0.2 E.U./dL (0.2)
[2023-10-28 19:12] LABS: URINE RBC 0-2 RBC/hpf (0-5)
[2023-10-28 19:13] LABS: URINE SQUAMOUS EPITHELIAL CELL FEW EPI/hpf (0-FEW)
[2023-10-28] MEDS ORDERED: NITROFURANTOIN 100 MG/CAP PO ONE (19:20)
[2023-10-28] MEDS ORDERED: BUTALBITAL-APAP-CAFFEINE 50-325-40 TAB PO ONE (19:30)
[2023-10-28] MEDS ORDERED: PROMETHAZINE HY25 M1 PO (19:59)
[2023-10-28] MEDS ORDERED: MACROBID100 M1 PO (19:59)
[2023-10-28] MEDS ORDERED: HYDROmorphone HCL 2 MG/AMP IM ONE (20:00)
[2023-10-28] MEDS ORDERED: PHENERGAN25 MG RE (20:00)
== END 2023-10-28 20:57 | disposition home or self-care (01) ==
LOC: ED 17:11
PROVIDERS: Nurse Practitioner
DX: G43.909 Migraine, unspecified, not intractable, without status migrainosus (principal); N39.0 Urinary tract infection, site not specified; B95.1 Streptococcus, group B, as the cause of diseases classified elsewhere; I10 Essential (primary) hypertension; E11.9 Type 2 diabetes mellitus without complications; F41.9 Anxiety disorder, unspecified; Z20.822 Contact with and (suspected) exposure to COVID-19